=== PATIENT | female | born 1940 | race Caucasian/White ===

== ENCOUNTER → 2016-09-02 | Outpatient (CLI) | payer BC ==
[2015-04-27 10:06] VITALS: BP 120/73
--- NOTE | 2016-09-03 09:17 | MG ---
HISTORY: SCREENING Comparison: 08/28/2015, 08/22/2014, 08/18/2013 FINDINGS: Bilateral CC and MLO projections of the right and left breast were obtained. Scattered fibroglandul ar tissue is seen to be present. No significant architectural distortion, mass or clustered microca lcifications can be observed to suggest malignancy. No skin thickening or nipple retraction is appr eciated. No pathological lymphadenopathy can be identified. IMPRESSION: NO RADIOGRAPHIC EVIDENCE OF MALIGNANCY. ACR CATEGORY I - NEGATIVE EXAM. FOLLOW-UP EXAM 1 YEAR. Diagnostic CAD was utilized and reviewed. * 0 (ZERO) - ASSESSMENT INCOMPLETE; ADDITIONAL IMAGING IS NEEDED. * / (ONE) - NEGATIVE. * 2/II (TWO) - BENIGN FINDINGS. * 3/III (THREE) - PROBABLY BENIGN FINDING; SHORT INTERVAL FOLLOW-UP SUGGESTED. * 4/IV (FOUR) - SUSPICIOUS ABNORMALITY; BIOPSY SHOULD BE CONSIDERED. * 5/V - HIGHLY SUSPICIOUS OF MALIGNANCY; BIOPSY SHOULD BE PERFORMED. A NEGATIVE X-RAY REPORT SHOULD NOT DELAY BIOPSY IF A DOMINANT OR CLINICALLY SUSPICIOUS MASS IS PRESENT; 4 TO 8 PERCENT OF CANCERS ARE NOT IDENTIFIED BY X-RAY. A NEG ATIVE REPORT MAY REINFORCE THE CLINICAL IMPRESSION. ADENOSIS AND DENSE BREASTS MAY OBSCURE AN UNDER LYING NEOPLASM. Reported By:
== END ==
LOC: RAD 14:00
PROVIDERS: ATTEND Specialist
DX: Z12.31 Encounter for screening mammogram for malignant neoplasm of breast (principal)
CPT/HCPCS: 77067

== ENCOUNTER → 2016-10-09 | Outpatient (CLI) | payer BC ==
[2015-04-27 10:06] VITALS: BP 120/73
--- NOTE | 2016-10-09 17:21 | VAS ---
Lower extremity doppler sonogram Indication: Left leg pain and swelling Comparison: None available TECHNIQUE: Multiple magaña scale and color flow Doppler images of the deep venous system were obtaine d of the right and left lower extremity. FINDINGS: The deep venous system of the right and left lower extremities were evaluated from the level of the common femoral vein through the popliteal vein. Normal color flow and augmentation can be observed. In addition, normal compression is seen throughout the deep venous system. IMPRESSION: 1. Negative for bilateral lower extremity DVT. Reported By:
== END ==
LOC: RAD 16:31
PROVIDERS: ATTEND Nurse Practitioner Family
DX: M79.605 Pain in left leg (principal); M79.604 Pain in right leg; M79.89 Other specified soft tissue disorders
CPT/HCPCS: 93970

== ENCOUNTER → 2016-12-11 | Outpatient (CLI) | payer BC ==
[2015-04-27 10:06] VITALS: BP 120/73
--- NOTE | 2016-12-11 11:59 | MRI ---
Left ankle and foot MRI without contrast Indication: Left ankle and foot pain Technique: Multisequence, multiplanar MR images of the left ankle and foot were obtained without IV contrast. Comparison: None Findings: Bone marrow signal is normal. No acute fracture, malalignment or suspicious osseous lesion of the foot or ankle is identified. There is very mild chondromalacia of the tibiotalar joint with small subchondral cyst formation with in the posterior lateral talar dome. No discrete talar dome osteochondral lesions are identified. Th ere are small tibiotalar and talonavicular joint effusions. There are also mild degenerative changes of the 1st MTP joint with small marginal osteophyte formation about the metatarsal head. The remain ing joint spaces of the ankle and foot appear well maintained without significant degenerative or er osive change. The syndesmotic ligaments, lateral ligaments of the ankle and deep and superficial deltoid ligamento us complex appear intact. There is small fluid about the retro and inframalleolar posterior tibialis tendon without discrete tear. Small fluid surrounding the flexor hallucis is likely related to cont inuity with the tibiotalar effusion. The remaining flexor, peroneus and extensor tendons of the ankl e and foot appear within normal limits. The sinus tasrsi is unremarkable. There is mild edema throughout Kager's fat as well as mild subcuta neous edema along the dorsal foot and medial ankle. The Achilles tendon is normal in signal and morp hology. The plantar fascia is normal as well. Impression: 1. 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 2. Very mild chondrosis of the tibiotalar joint with small, likely reactive joint effusion. No discr ete talar dome osteochondral lesions are identified. 3. Mild posterior tibialis tenosynovitis. 4. Nonspecific subcutaneous edema along the dorsal foot and medial ankle. Reported By:
== END | disposition home or self-care (01) | DRG 556 ==
LOC: RAD 09:28
PROVIDERS: ATTEND Internal Medicine
DX: M25.572 Pain in left ankle and joints of left foot (principal); M79.672 Pain in left foot; M19.072 Primary osteoarthritis, left ankle and foot
CPT/HCPCS: 73718; 73721

== ENCOUNTER → 2017-03-06 | Outpatient (CLI) | payer BC ==
[2015-04-27 10:06] VITALS: BP 120/73
[2017-03-06 11:24] LABS: CREATININE 1.02 mg/dL (0.55-1.02)
--- NOTE | 2017-03-06 14:04 | MRI ---
MRI OF THE BRAIN WITHOUT AND WITH IV CONTRAST CLINICAL INDICATION: Dizziness and abnormality of gait TECHNIQUE: Pre-contrast T1-w, T2, and diffusion-w sequences of the brain with ADC maps. Post-contrast images of the brain. Intravenous contrast material was administered for the examination. COMPARISON: None. FINDINGS: There is no abnormal brain parenchymal signal. There is no mass or mass-effect, or abnormal extra-axi al fluid collection. Diffusion imaging shows no hyperacute, acute, or early subacute infarction. The ventricles are normal in size, shape and position. There are normal signal voids in the larger intra cranial vessels. Opacification of the right maxillary sinus. The marrow signal pattern is within norm al limits. There is no abnormal brain parenchymal or leptomeningeal enhancement. IMPRESSION: 1. No acute intracranial abnormality. 2. Opacification of the right maxillary sinus. Correlate with symptoms. Reported By:
== END ==
LOC: RAD 10:58
PROVIDERS: ATTEND Internal Medicine
DX: H81.13 Benign paroxysmal vertigo, bilateral (principal); R42 Dizziness and giddiness; R11.2 Nausea with vomiting, unspecified; R26.89 Other abnormalities of gait and mobility
CPT/HCPCS: 36415; 70552; 82565; 84520

== ENCOUNTER → 2017-09-25 | Outpatient (CLI) | payer BC ==
[2015-04-27 10:06] VITALS: BP 120/73
--- NOTE | 2017-09-26 09:50 | MG ---
HISTORY: SCREENING Comparison: 09/02/2016 FINDINGS: Bilateral CC and MLO projections of the right and left breast were obtained. Heterogeneously dense f ibroglandular tissue is seen to be present. No significant architectural distortion, mass or cluster ed microcalcifications can be observed to suggest malignancy. No skin thickening or nipple retractio n is appreciated. No pathological lymphadenopathy can be identified. Benign-appearing calcification s are noted. IMPRESSION: NO RADIOGRAPHIC EVIDENCE OF MALIGNANCY. ACR CATEGORY 2 - benign findings FOLLOW-UP EXAM 1 YEAR. Diagnostic CAD was utilized and reviewed. * 0 (ZERO) - ASSESSMENT INCOMPLETE; ADDITIONAL IMAGING IS NEEDED. * / (ONE) - NEGATIVE. * 2/II (TWO) - BENIGN FINDINGS. * 3/III (THREE) - PROBABLY BENIGN FINDING; SHORT INTERVAL FOLLOW-UP SUGGESTED. * 4/IV (FOUR) - SUSPICIOUS ABNORMALITY; BIOPSY SHOULD BE CONSIDERED. * 5/V - HIGHLY SUSPICIOUS OF MALIGNANCY; BIOPSY SHOULD BE PERFORMED. A NEGATIVE X-RAY REPORT SHOULD NOT DELAY BIOPSY IF A DOMINANT OR CLINICALLY SUSPICIOUS MASS IS PRESENT; 4 TO 8 PERCENT OF CANCERS ARE NOT IDENTIFIED BY X-RAY. A NEGA TIVE REPORT MAY REINFORCE THE CLINICAL IMPRESSION. ADENOSIS AND DENSE BREASTS MAY OBSCURE AN UNDERLY ING NEOPLASM. Reported By:
== END ==
LOC: RAD 09:27
PROVIDERS: ATTEND Specialist
DX: Z12.31 Encounter for screening mammogram for malignant neoplasm of breast (principal)
CPT/HCPCS: 77067

== ENCOUNTER 2018-04-29 12:16 | Inpatient (IN) ==
[2018-04-29] MEDS ORDERED: FORTAZ or TAZICEF VIAL INJ IVP SCH (16:07)
[2018-04-29] MEDS ORDERED: TUSSIONEX PENNKINETIC SUSP PO PRN (16:07)
[2018-04-29] MEDS ORDERED: NS 1/2 1000 ML IV 1,000 ML IV ONE (16:11)
[2018-04-29] MEDS: SOLU-Medrol 40 MG VIAL IVP SCH ×2 (16:27→20:59)
[2018-04-29] MEDS: NS 1/2 1000 ML IV 1,000 ML IV SCH (16:27)
[2018-04-29] MEDS: ROBITUSSIN DM PO SCH ×2 (16:27→20:59)
[2018-04-29 16:40] LABS: BASOPHILS # (AUTO) 0.1 X10^3/uL (0.0-0.1); BASOPHILS % (AUTO) 0.4 % (0.2-1.0); EOSINOPHILS % (AUTO) 0.1 % (0.9-2.9); HEMATOCRIT 48.6 % (36.0-47.0); HEMOGLOBIN 16.4 g/dL (12.0-16.0); LYMPHOCYTES # (AUTO) 1.6 X10^3/uL (1.3-2.9); LYMPHOCYTES % (AUTO) 10.4 % (21.0-51.0); MEAN CORPUSCULAR HEMOGLOBIN 29.3 pg (27.0-34.0); MEAN CORPUSCULAR HGB CONC 33.8 g/dL (33.0-35.0); MEAN CORPUSCULAR VOLUME 86.8 fL (80.0-100.0); MEAN PLATELET VOLUME 7.1 fL (7.4-11.0); MONOCYTES # (AUTO) 1.6 x10^3/uL (0.3-0.8); MONOCYTES % (AUTO) 10.3 % (0.0-13.0); NEUTROPHILS # (AUTO) 12.2 x10^3/uL (2.2-4.8); NEUTROPHILS % (AUTO) 78.8 % (42.0-75.0); PLATELET COUNT 399 X10^3/uL (150.0-450.0); RED CELL DISTRIBUTION WIDTH 13.4 % (11.6-16.5); WHITE BLOOD COUNT 15.5 X10^3/uL (3.6-10.0)
[2018-04-29 16:45] LABS: ALANINE AMINOTRANSFERASE 43 Units/L (12-78); ALBUMIN 3.7 g/dL (3.4-5.0); ALKALINE PHOSPHATASE 148 Units/L (46-116); ASPARTATE AMINO TRANSFERASE 10 Units/L (15-37); BLOOD UREA NITROGEN 25 mg/dL (7-18); CALCIUM 9.8 mg/dL (8.5-10.1); CARBON DIOXIDE 23.9 mmol/L (21-32); CHLORIDE 104 mmol/L (98-107); COR NA(FOR HYPERGLY) 138 mmol/L (136-145); CREATININE 0.98 mg/dL (0.55-1.02); SODIUM 138 mmol/L (136-145); TOTAL PROTEIN 7.7 g/dL (6.4-8.2); eGFR NON BLACK RACES 59 (>60)
--- NOTE | 2018-04-29 16:57 | RAD ---
HISTORY: Cough, congestion Study: PA and lateral views of the chest Comparison:None Findings: No infiltrate, effusion or pneumothorax identified. The cardiac and mediastinal contours are within normal limits. The soft tissues are unremarkable. IMPRESSION: 1. No acute cardiopulmonary abnormality. Reported By:
[2018-04-29] MEDS: DUONEB 0.5 MG/3 MG NEB SCH ×2 (17:00→17:25)
[2018-04-29 17:02] LABS: BAND NEUTROPHILS % 8 % (0-10)
[2018-04-29 17:03] LABS: PLATELET MORPHOLOGY COMMENT NORMAL (NORMAL)
[2018-04-29] MEDS: LEVAQUIN PREMIX IV 750 MG 750 MG/150 ML BAG IV SCH (17:30)
[2018-04-29 17:44] VITALS: BMI 22.6
[2018-04-30] MEDS: DUONEB 0.5 MG/3 MG NEB SCH ×4 (03:00→17:08)
[2018-04-30] MEDS: SOLU-Medrol 40 MG VIAL IVP SCH ×3 (05:34→21:19)
[2018-04-30] MEDS: NS 1/2 1000 ML IV 1,000 ML IV SCH ×2 (05:34→21:20)
[2018-04-30] MEDS ORDERED: NS 1/2 1000 ML IV 1,000 ML IV ONE ×2 (05:39→21:29)
[2018-04-30 06:49] LABS: BASOPHILS % (AUTO) 0.3 % (0.2-1.0); HEMATOCRIT 44.1 % (36.0-47.0); HEMOGLOBIN 15.1 g/dL (12.0-16.0); LYMPHOCYTES # (AUTO) 1.2 X10^3/uL (1.3-2.9); LYMPHOCYTES % (AUTO) 9.3 % (21.0-51.0); MEAN CORPUSCULAR HEMOGLOBIN 29.5 pg (27.0-34.0); MEAN CORPUSCULAR HGB CONC 34.3 g/dL (33.0-35.0); MEAN CORPUSCULAR VOLUME 85.9 fL (80.0-100.0); MEAN PLATELET VOLUME 7.7 fL (7.4-11.0); MONOCYTES # (AUTO) 0.4 x10^3/uL (0.3-0.8); MONOCYTES % (AUTO) 2.8 % (0.0-13.0); NEUTROPHILS # (AUTO) 11.7 x10^3/uL (2.2-4.8); NEUTROPHILS % (AUTO) 87.6 % (42.0-75.0); PLATELET COUNT 352 X10^3/uL (150.0-450.0); RED BLOOD COUNT 5.13 X10^6/uL (3.5-5.4); RED CELL DISTRIBUTION WIDTH 13.2 % (11.6-16.5); WHITE BLOOD COUNT 13.3 X10^3/uL (3.6-10.0)
[2018-04-30 07:07] LABS: ALANINE AMINOTRANSFERASE 35 Units/L (12-78); ALBUMIN 3.2 g/dL (3.4-5.0); ALKALINE PHOSPHATASE 117 Units/L (46-116); ASPARTATE AMINO TRANSFERASE 11 Units/L (15-37); BLOOD UREA NITROGEN 20 mg/dL (7-18); CALCIUM 9.4 mg/dL (8.5-10.1); CARBON DIOXIDE 18.9 mmol/L (21-32); CHLORIDE 104 mmol/L (98-107); COR NA(FOR HYPERGLY) 139 mmol/L (136-145); CREATININE 0.98 mg/dL (0.55-1.02); SODIUM 138 mmol/L (136-145); TOTAL PROTEIN 6.6 g/dL (6.4-8.2); eGFR NON BLACK RACES 59 (>60)
[2018-04-30 07:19] LABS: PLATELET MORPHOLOGY COMMENT NORMAL (NORMAL)
--- NOTE | 2018-04-30 07:19 | RAD ---
HISTORY: Cough, congestion for 2 weeks Study: Single-view chest Comparison: 04/29/2018. Findings: Trachea is midline. Heart size is normal. There is hyperinflation of the lungs with increased interstitial markings. No consolidation, CHF, pleural fluid or pneumothorax is seen. IMPRESSION: Hyperinflation of the lungs with increased interstitial markings. Findings may indicate mild bronchitis. No consolidation is seen. Reported By:
[2018-04-30] MEDS: ROBITUSSIN DM PO SCH ×4 (09:02→21:19)
[2018-04-30] MEDS: LEVAQUIN PREMIX IV 750 MG 750 MG/150 ML BAG IV SCH (09:02)
[2018-04-30] MEDS ORDERED: PATIENT'S HOME MEDICATION (Fluticasone-Umeclidin-Vilanter [Trelegy Ellipta] 1 INH) IN SCH (10:30)
[2018-04-30] MEDS ORDERED: TIMOPTIC 0.5% EYE DROPS OP SCH (10:45)
[2018-04-30] MEDS: NexIUM PO SCH (11:42)
[2018-04-30] MEDS: BRINZOLAMIDE BRIMONIDINE OP SCH ×2 (11:43→21:20)
[2018-04-30] MEDS: CLARITIN-D 12 HOUR TAB PO SCH (11:43)
[2018-04-30] MEDS ORDERED: CLARITIN ONE (11:44)
[2018-04-30] MEDS: PULMICORT NEB TX 0.5 MG NEB SCH ×2 (13:11→20:12)
[2018-04-30] MEDS ORDERED: PATIENT'S HOME MEDICATION OP SCH (21:00)
[2018-05-01] MEDS: DUONEB 0.5 MG/3 MG NEB SCH ×2 (00:59→06:10)
[2018-05-01] MEDS: SOLU-Medrol 40 MG VIAL IVP SCH (05:32)
[2018-05-01 06:50] LABS: ALANINE AMINOTRANSFERASE 32 Units/L (12-78); ALBUMIN 2.8 g/dL (3.4-5.0); ALKALINE PHOSPHATASE 99 Units/L (46-116); ASPARTATE AMINO TRANSFERASE 14 Units/L (15-37); BLOOD UREA NITROGEN 22 mg/dL (7-18); CALCIUM 9.1 mg/dL (8.5-10.1); CARBON DIOXIDE 20.1 mmol/L (21-32); CHLORIDE 107 mmol/L (98-107); COR CA(FOR HYPOALB) 10.1 mg/dL (8.5-10.1); COR NA(FOR HYPERGLY) 143 mmol/L (136-145); CREATININE 0.92 mg/dL (0.55-1.02); SODIUM 141 mmol/L (136-145); TOTAL PROTEIN 5.8 g/dL (6.4-8.2); eGFR NON BLACK RACES > 60 (>60)
[2018-05-01 07:16] LABS: BASOPHILS % (AUTO) 0.2 % (0.2-1.0); LYMPHOCYTES % (AUTO) 6.3 % (21.0-51.0); MEAN CORPUSCULAR HEMOGLOBIN 29.2 pg (27.0-34.0); MEAN CORPUSCULAR HGB CONC 34.1 g/dL (33.0-35.0); MEAN CORPUSCULAR VOLUME 85.7 fL (80.0-100.0); MEAN PLATELET VOLUME 7.5 fL (7.4-11.0); MONOCYTES # (AUTO) 0.8 x10^3/uL (0.3-0.8); MONOCYTES % (AUTO) 5.4 % (0.0-13.0); NEUTROPHILS # (AUTO) 13.5 x10^3/uL (2.2-4.8); NEUTROPHILS % (AUTO) 88.1 % (42.0-75.0); PLATELET COUNT 327 X10^3/uL (150.0-450.0); RED BLOOD COUNT 4.79 X10^6/uL (3.5-5.4); RED CELL DISTRIBUTION WIDTH 13.3 % (11.6-16.5); WHITE BLOOD COUNT 15.4 X10^3/uL (3.6-10.0)
[2018-05-01 08:28] LABS: PLATELET MORPHOLOGY COMMENT NORMAL (NORMAL)
[2018-05-01] MEDS ORDERED: PATIENT'S HOME MEDICATION OP SCH (09:00)
[2018-05-01] MEDS: BRINZOLAMIDE BRIMONIDINE OP SCH (09:38)
[2018-05-01] MEDS: NexIUM PO SCH (09:39)
[2018-05-01] MEDS: LEVAQUIN PREMIX IV 750 MG 750 MG/150 ML BAG IV SCH (09:39)
[2018-05-01] MEDS: CLARITIN-D 12 HOUR TAB PO SCH (09:39)
[2018-05-01] MEDS: ROBITUSSIN DM PO SCH (09:40)
[2018-05-01] MEDS: NS 1/2 1000 ML IV 1,000 ML IV SCH (12:29)
[2018-05-01 12:40] VITALS: BP 166/80
--- NOTE | 2018-05-01 13:03 | RAD ---
HISTORY: Cough and congestion. Study: AP portable chest Comparison: 04/30/2018 Findings: The lungs are clear. The heart size is normal. No acute bony abnormalities are identified. IMPRESSION: 1. No radiographic evidence of acute cardiopulmonary disease or significant change is noted when compared to the prior examination. Reported By:
== END 2018-05-01 13:10 | disposition home or self-care (01) | DRG 195 ==
LOC: ICU 15:47
PROVIDERS: ADMIT Internal Medicine; ATTEND Internal Medicine
DX: J18.0 Bronchopneumonia, unspecified organism; E78.2 Mixed hyperlipidemia; E55.9 Vitamin D deficiency, unspecified
CPT/HCPCS: 36415; 71010; 71020; 71045; 71046; 80053; 85025; 87040; 87070; 87205; 94640; A4222; J1956; J2920; J7620; J7626